=== PATIENT | male | born 1985 | race American Indian/Alaskan Native ===

== ENCOUNTER 2017-10-19 19:38 | Emergency (ER) | payer SELFPAY ==
[2017-10-19 21:48] LABS: BASO # 0.1 K/uL (0.0-0.2); BASO % 0.5 % (0.0-2.0); EOS # 0.2 K/uL (0.0-0.7); EOS % 2.2 % (0.0-4.0); HEMOGLOBIN 16.4 g/dL (12.0-18.0); LYMPH # 1.8 K/uL (1.0-4.3); LYMPH % 16.1 % (20.0-40.0); MEAN CORPUSCULAR HEMOGLOBIN 28.8 pg (27.0-31.0); MEAN CORPUSCULAR HGB CONC 33.5 g/dL (33.0-37.0); MEAN PLATELET VOLUME 10.5 fL (7.2-11.7); MONO # 1.1 K/uL (0.0-0.8); MONO % 9.8 % (0.0-10.0); NEUT # 7.9 K/uL (1.8-7.0); NEUT % 71.4 % (50.0-75.0); NRBC % 0.3 % (0.0-2.0); RBC 5.7 Mil/uL (4.40-5.90); RED CELL DISTRIBUTION WIDTH 14.7 % (11.5-14.5); WHITE BLOOD COUNT 11.1 K/uL (4.8-10.8)
--- NOTE | 2017-10-19 21:52 | C.PDOC ---
History Of Present Illness Dean Emmanuel is a 32 year old male, whose past medical history includes HTN, diabetes, and hypercholesterolemia, who presents to the emergency department complaining of discomfort in left ear for one day. Patient reports he has been taking Motrin PO. He states waking up with dizziness today and describes it as a vertigo sensation. Patient denies chest pain, shortness of breath, headache, fever, chills, cough, nausea, vomiting, diarrhea, abdominal pain, or other complaints. Time Seen by Provider: 10/19/17 21:06 Chief Complaint (Nursing): ENT Problem History Per: Patient History/Exam Limitations: None Onset/Duration Of Symptoms: Days Current Symptoms Are (Timing): Gone Quality (Ear): Redness, Swelling Quality (Mouth/Throat): denies: Tenderness, Swelling Symptoms Have Been: Continuous Past Medical History Reviewed: Historical Data, Nursing Documentation, Vital Signs Vital Signs: Last Vital Signs Temp 98.2 F 10/19/17 22:29 Pulse 71 10/19/17 22:29 Resp 18 10/19/17 22:29 BP 140/82 10/19/17 22:29 Pulse Ox 97 10/19/17 22:52 - Medical History PMH: Diabetes, HTN, Hypercholesterolemia Surgical History: No Surg Hx Family History: States: Unknown Family Hx - Social History Hx Tobacco Use: Yes Hx Alcohol Use: No Hx Substance Use: No - Immunization History Hx Tetanus Toxoid Vaccination: No Hx Influenza Vaccination: No Hx Pneumococcal Vaccination: No Review Of Systems Constitutional: Negative for: Fever, Chills ENT: Positive for: Ear Pain (swelling on left ear) Cardiovascular: Negative for: Chest Pain Respiratory: Negative for: Cough, Shortness of Breath Gastrointestinal: Negative for: Nausea, Vomiting, Abdominal Pain, Diarrhea Genitourinary: Negative for: Frequency Neurological: Positive for: Dizziness. Negative for: Headache Physical Exam - Physical Exam Appears: Well, Non-toxic, No Acute Distress Skin: Normal Color, Warm, Dry Head: Atraumatic, Normacephalic Eye(s): bilateral: Normal Inspection, PERRL, EOMI Ear(s): Left: TM Erythema, TM Dull (no tympanic membrane visible), Other ( grossly abnormal ), Right: Normal Oral Mucosa: Moist Chest: No Tenderness Cardiovascular: Rhythm Regular Extremity: Normal ROM Neurological/Psych: Oriented x3, Normal Speech, Normal Cognition, Normal Sensation ED Course And Treatment - Laboratory Results Result Diagrams: 10/19/17 21:41 10/19/17 21:41 Lab Interpretation: No Acute Changes O2 Sat by Pulse Oximetry: 97 (room air) Pulse Ox Interpretation: Normal - CT Scan/US CT head Other Rad Studies (CT/US): Read By Radiologist, Radiology Report Reviewed CT/US Interpretation: Accession No. : [id number]. Patient Name / ID : COLTEN DEL TORO / [id number]. Exam Date : 10/19/2017 21:32:27 ( Approved ). Study Comment : Sex / Age : M / 32Y. Creator : GLORIA JONES. Dictator : Mechanical Engineering Intern : Mold Setter : GLORIA JONES. Approver2 : Report Date : 10/19/2017 22:11:00. My Comment : . [facility]. [facility] Division of Radiology. [address] [place] [address]. Tel. no. . . . Patient Name: DEAN EMMANUEL . Pt. Address: [address] [place] [address]. Rec # : [id number]. [place] [address]: Los LIANG,Ruthann Rucker. Pt Order Location: [facility] : 1985 Male Age: 32 Order #: [id number]. Accession # : [id number]. Reason for exam: R/O Bleed. . . . . . CT Scan. . . HEAD W/O CONTRAST Exam Date: 10/19/17. . This imaging exam was performed at [facility]. EXAM: CT Head Without Intravenous Contrast. . EXAM DATE/TIME: 10/19/2017 9:15 PM. . CLINICAL HISTORY: 32 years old, male; Signs and symptoms; Dizziness and other: Left ear ache;. Additional info: R/O bleed. . TECHNIQUE: Axial computed tomography images of the head/brain without intravenous. contrast. All CT scans at this facility use one or more dose reduction. techniques, viz.: automated exposure control; ma/kV adjustment per patient size. (including targeted exams where dose is matched to indication; i.e. head); or. iterative reconstruction technique. . COMPARISON: There are no prior studies for comparison. . FINDINGS: Brain: Ventricles are normal in size and configuration. There is no midline. shift. There are no intra-axial or extra-axial mass lesions or areas of. hemorrhage. There are no abnormal fluid collections. Cruz-white differentiation. is maintained. Ventricles: See above. Bones: Cranial vault is intact. There is deformity of nasal and facial bones. suggesting old fractures. Soft tissues: There is left facial edema. Sinuses: There is mucoperiosteal thickening in the left maxillary sinus. There is partial opacification of left ethmoid air cells. Ears and mastoids: Middle ears and mastoids are unremarkable. Orbits: Globes are intact. . IMPRESSION: Old facial bone fractures; sinus disease; no acute intracranial. abnormality; no acute left middle ear or mastoid disease. . Dictated By: Gloria Fulton MD., MD. Dictated Date/Time: 10/19/172210. Signed By: Gloria Nicholson MD. Date Signed: 10/19/172210. Transcribed By: [facility]. Transcribe Date/Time: 10/19/172210. MILANA/RITA Progress Note: Patient treated in ED with IV Cipro and Morphine and PO Meclizine. Medical Decision Making Medical Decision Making: Impression: 32 y/o male with no tympanic membrane visible on left ear and grossly abnormal Plan: -- CT Head -- Morphine and Antivert -- Reassess and disposition Disposition Counseled Patient/Family Regarding: Studies Performed, Diagnosis, Need For Followup, Rx Given - Disposition Referrals: Javier Escoto MD [Staff Provider] - Disposition: HOME/ ROUTINE Disposition Time: 23:43 Condition: STABLE Prescriptions: Ciprofloxacin [Cipro] 1 tab PO BID #20 tab Instructions: Otitis Externa (ED) Forms: [facility] (Kyrgyz) - Clinical Impression Clinical Impression: Otitis externa - Scribe Statement The provider has reviewed the documentation as recorded by the Dome Marybelibe Attestation: Dorene Eldridge Attestation: All medical record entries made by the Marybelibe were at my direction and personally dictated by me. I have reviewed the chart and agree that the record accurately reflects my personal performance of the history, physical exam, medical decision making, and the department course for this patient. I have also personally directed, reviewed, and agree with the discharge instructions and disposition.
[2017-10-19 22:02] LABS: ALB/GLOB RATIO 1.1 (1.0-2.1)
--- NOTE | 2017-10-19 22:12 | CT ---
EXAM: CT Head Without Intravenous Contrast EXAM DATE/TIME: 10/19/2017 9:15 PM CLINICAL HISTORY: 32 years old, male; Signs and symptoms; Dizziness and other: Left ear ache; Additional info: R/O bleed TECHNIQUE: Axial computed tomography images of the head/brain without intravenous contrast. All CT scans at this facility use one or more dose reduction techniques, viz.: automated exposure control; ma/kV adjustment per patient size (including targeted exams where dose is matched to indication; i.e. head); or iterative reconstruction technique. COMPARISON: There are no prior studies for comparison. FINDINGS: Brain: Ventricles are normal in size and configuration. There is no midline shift. There are no intra-axial or extra-axial mass lesions or areas of hemorrhage. There are no abnormal fluid collections. Cruz-white differentiation is maintained. Ventricles: See above. Bones: Cranial vault is intact. There is deformity of nasal and facial bones suggesting old fractures. Soft tissues: There is left facial edema. Sinuses: There is mucoperiosteal thickening in the left maxillary sinus. There is partial opacification of left ethmoid air cells. Ears and mastoids: Middle ears and mastoids are unremarkable Orbits: Globes are intact. IMPRESSION: Old facial bone fractures; sinus disease; no acute intracranial abnormality; no acute left middle ear or mastoid disease
[2017-10-19] MEDS ORDERED: Ciprofloxacin 400mg/200ml D5W 400 MG/200 ML BAG IV STA (22:25)
[2017-10-19 22:26] LABS: ALT/SGPT 32 U/L (21-72); AST/SGOT 29 U/L (17-59); BLOOD UREA NITROGEN 14 mg/dL (9-20); CALCIUM 9.2 mg/dl (8.6-10.4); GFR AFRICAN-AMERICAN > 60; GFR NON-AFRICAN AMERICAN > 60
[2017-10-19 22:30] VITALS: TEMP 98.2
[2017-10-19] MEDS ORDERED: Ciprofloxacin 400mg/200ml D5W 400 MG/200 ML BAG IVPB ONE (22:35)
[2017-10-20 00:18] VITALS: BP 150/100; PULSE 68; RESP 20; O2SAT 98
== END 2017-10-20 00:13 | disposition home or self-care (01) ==
LOC: C.ER 19:38
DX: H60.90 Unspecified otitis externa, unspecified ear (principal); E11.9 Type 2 diabetes mellitus without complications; I10 Essential (primary) hypertension; E78.00 Pure hypercholesterolemia, unspecified; Z87.891 Personal history of nicotine dependence
CPT/HCPCS: 70450; 80053; 85025; 96365; 96375; 99284; J0744; J2270